=== PATIENT | male | born 1940 | race Caucasian/White ===

== ENCOUNTER 2025-01-20 08:13 | Inpatient (IN) | payer MEDICARE, BC ==
[~2025-01-20] VITALS: Ht 170.2 cm; Wt 85.7 kg
[2025-01-20 08:16] VITALS: BP 135/80
[2025-01-20] MEDS ORDERED: WARF-58 PO ×2 (08:45→15:38)
[2025-01-20] MEDS ORDERED: FOLI1TAB27 PO (08:45)
[2025-01-20] MEDS ORDERED: COLE3.755 PO (08:45)
[2025-01-20] MEDS ORDERED: TRIA60LO13 TP (08:45)
[2025-01-20] MEDS ORDERED: KETO15CR2 TP (08:45)
[2025-01-20] MEDS ORDERED: ZOLP10TA2 PO (08:45)
[2025-01-20] MEDS ORDERED: CYCL25CA PO (08:45)
[2025-01-20] MEDS ORDERED: MYCO360T3 PO (08:45)
[2025-01-20 08:50] LABS: PLATELET COUNT (AUTO) 209 K/uL (152-348); RED BLOOD CELL COUNT(AUTO) 3.42 MIL/uL (4.06-5.63); RED CELL DISTRIBUTION WIDTH 14.0 % (12.1-16.2); WHITE BLOOD COUNT (AUTO) 4.2 K/uL (3.6-10.2)
[2025-01-20] MEDS ORDERED: FUROSEMIDE 40 MG/4 ML VIAL ONE (09:06)
[2025-01-20] MEDS: FUROSEMIDE 40 MG/4 ML VIAL IV ONE (09:06)
[2025-01-20 09:12] LABS: CREATININE 1.8 mg/dL (0.6-1.3); SODIUM SERUM 138 mmol/L (136-145); UREA NITROGEN, BLOOD 30 mg/dL (7-18)
[2025-01-20 09:26] LABS: ASPARTATE AMINOTRANSFERASE 20 U/L (15-37); TOTAL PROTEIN, SERUM 7.6 g/dL (6.4-8.2)
[2025-01-20 09:47] LABS: *BILIRUBIN,URIN NEGATIVE (NEGATIVE); *BLOOD, URINE 1+ (NEGATIVE); *CLARITY,URINE CLEAR (CLEAR); *COLOR,URINE YELLOW (YELLOW); *KETONES,URINE NEGATIVE (NEGATIVE); *UROBILINOGEN,URINE 0.2 E.U./dl (NORMAL); LEUKOCYTE ESTERASE ,URINE NEGATIVE (NEGATIVE); NITRITE, URINE NEGATIVE (NEGATIVE); UGLUCOSE NEGATIVE (NEGATIVE)
[2025-01-20 09:57] LABS: *PROTEIN,URINE 3+ (NEGATIVE)
[2025-01-20 10:11] LABS: SQUAMOUS EPITHELIAL CELL,UR FEW /HPF (NONE SEEN)
[2025-01-20] MEDS ORDERED: ACETAMINOPHEN 325 MG TABLET PO PRN (11:15)
[2025-01-20] MEDS ORDERED: MAGNESIUM HYDROXIDE 30 ML LIQUID UDC PO PRN (11:15)
[2025-01-20] MEDS ORDERED: ENOXAPARIN SODIUM 40 MG/0.4 ML DISP.SYRIN SQ SCH (11:15)
[2025-01-20] MEDS ORDERED: ONDANSETRON 4 MG/2 ML VIAL IV PRN (11:15)
[2025-01-20] MEDS ORDERED: REMEDY ESSENTIAL ZINC PASTE 113 GM TP PRN (11:15)
[2025-01-20 11:40] VITALS: BP 152/83; TEMP 98; O2SAT 97
[2025-01-20] MEDS ORDERED: ACET325T53 PO (15:34)
[2025-01-20] MEDS ORDERED: ALLO100T PO (15:35)
[2025-01-20] MEDS ORDERED: TRAZ-252 PO (15:35)
[2025-01-20] MEDS ORDERED: ATOR40TA PO (15:36)
[2025-01-20] MEDS ORDERED: PANT40TA49 PO (15:36)
[2025-01-20 15:44] VITALS: BP 162/70; TEMP 98.2; O2SAT 98
[2025-01-20] MEDS ORDERED: WARFARIN SODIUM 2.5 MG TABLET PO SCH (17:00)
[2025-01-20] MEDS ORDERED: MYCOPHENOLATE SODIUM PO SCH (17:00)
[2025-01-20 17:08] LABS: ABG BASE EXCESS -1.3 mmol/L (-2.0-3.0); ABG HCO3 24.2 mmol/L (21.0-28.0); ABG PCO2 43.7 mmHg (35.0-48.0); ABG PH 7.361 (7.350-7.450); ABG PO2 94.3 mmHg (83.0-108.0); ABG SITE RIGHT RADIAL; ABG TOTAL HEMOGLOBIN 11.2 G/dL (13.5-17.5); AaDO2 96.9 mmHg; FIO2 32.0 %; FLOW, BLOOD GAS 3.00 L/min (0.00-30.00)
[2025-01-20] MEDS ORDERED: CYCL100C8 PO (18:42)
[2025-01-20] MEDS ORDERED: [UNRECOGNIZED DRUG - CODE] PO (18:43)
[2025-01-20] MEDS ORDERED: FURO40TA5 PO (18:44)
[2025-01-20 19:55] VITALS: BP 159/75; TEMP 98.8; O2SAT 94
[2025-01-20] MEDS: FUROSEMIDE 40 MG/4 ML VIAL IV SCH (21:31)
[2025-01-20] MEDS: HYDROCODONE/APAP 10-325 MG TABLET PO PRN (22:08)
[2025-01-21] MEDS ORDERED: PANTOPRAZOLE SODIUM 40 MG TABLET.DR PO SCH (07:00)
[2025-01-21] MEDS ORDERED: FOLIC ACID 1 MG TABLET PO SCH (09:00)
[2025-01-21] MEDS ORDERED: COLESEVELAM HCL 3.75 GM PO SCH (09:00)
[2025-01-21] MEDS ORDERED: WARFARIN SODIUM 5 MG TABLET PO SCH (17:00)
== END 2025-01-20 23:30 | disposition left against medical advice (07) | DRG 291 ==
LOC: ER 08:13 → TELE3 10:49
DX: I50.9 Heart failure, unspecified (principal); I26.99 Other pulmonary embolism without acute cor pulmonale; J96.01 Acute respiratory failure with hypoxia; Z94.0 Kidney transplant status; E44.1 Mild protein-calorie malnutrition; E88.09 Other disorders of plasma-protein metabolism, not elsewhere classified; I44.1 Atrioventricular block, second degree; D53.9 Nutritional anemia, unspecified; I48.91 Unspecified atrial fibrillation; Z86.711 Personal history of pulmonary embolism; Z88.1 Allergy status to other antibiotic agents; Z79.01 Long term (current) use of anticoagulants; Z68.29 Body mass index [BMI] 29.0-29.9, adult; Z53.29 Procedure and treatment not carried out because of patient's decision for other reasons; M79.89 Other specified soft tissue disorders
CPT/HCPCS: 36415; 36600; 71045; 78580; 82803; 83605; 84484; 85025; 85610; 87040; 93005; 93307; A4606; A4663; A9540; G0378; J1938; J7515